=== PATIENT | female | born 1995 | race Two or more races ===

== ENCOUNTER 2017-04-19 12:28 | Emergency (ER) | payer MEDICAID ==
[~2017-04-19] VITALS: Ht 149.9 cm; Wt 44.0 kg
[2017-04-19 12:31] VITALS: BP 119/82
[2017-04-19] MEDS ORDERED: ONDANSETRON ODT 4 MG ONE (13:38)
[2017-04-19] MEDS ORDERED: ONDANSETRON ODT 4 MG PO ONE (14:00)
[2017-04-19 14:11] LABS: BASOPHILS # (AUTO) 0.09 x10^3/uL (0-0.1); BASOPHILS % (AUTO) 1 % (0-1); EOSINOPHILS # (AUTO) 0.06 x10^3/uL (0-0.4); EOSINOPHILS % (AUTO) 1 % (1-7); LYMPHOCYTES # (AUTO) 1.96 x10^3/uL (1-3.4); LYMPHOCYTES % (AUTO) 21 % (22-44); MD NO; MEAN CORPUSCULAR HEMOGLOBIN 29.1 pg (27.0-34.8); MEAN CORPUSCULAR HGB CONC 33.1 g/dL (32.4-35.8); MEAN CORPUSCULAR VOLUME 87.8 fL (80-100); MONOCYTES # (AUTO) 0.52 x10^3/uL (0.2-0.8); MONOCYTES % (AUTO) 6 % (2-9); NEUTROPHILS % (AUTO) 72 % (42-75); PLATELET COUNT 278 x10^3/uL (130-400); RED BLOOD COUNT 4.62 x10^6/uL (3.82-5.3); RED CELL DISTRIBUTION WIDTH 12.6 % (9.6-15.2)
[2017-04-19 14:22] LABS: ALBUMIN 3.7 g/dL (3.4-5.0); ANION GAP 9 mmol/L (5-15); CALCIUM 8.7 mg/dL (8.5-10.1); CHLORIDE 107 mmol/L (98-107)
[2017-04-19 14:47] LABS: CULTURE INDICATED? YES; MICROSCOPIC INDICATED
== END 2017-04-19 15:34 | disposition home or self-care (01) ==
LOC: ED 15:24
DX: O23.11 Infections of bladder in pregnancy, first trimester (principal); O26.891 Other specified pregnancy related conditions, first trimester; Z3A.00 Weeks of gestation of pregnancy not specified; G40.319 Generalized idiopathic epilepsy and epileptic syndromes, intractable, without status epilepticus; R51 Headache
CPT/HCPCS: 36415; 80048; 81001; 82040; 85025; 87077; 87086; 99284; Q0162; 87186